=== PATIENT | female | born 2000 | race Caucasian/White ===

== ENCOUNTER 2021-08-25 10:50 | Outpatient (CLI) | payer BC, MEDICAID, SELFPAY ==
[2021-08-25] VITALS (26 sets, daily range): BP systolic 95–139; BP diastolic 51–72; PULSE 106–228; RESP 18–22; TEMP 37.2–37.3; O2SAT 93–100; BMI 34.2
[2021-08-25 12:02] LABS: Bilirubin Urine Neg (Negative); Blood Urine Neg (Negative); Glucose Urine UA Norm (Normal); Ketones Urine Negative (Negative); Leukocyte Esterase Urine 1+ (Negative); Nitrate Urine Negative (Negative); Protein Urine Neg (Negative); Specific Gravity, Urine 1.015 (1.005-1.030); Urine Appearance Clear (CLEAR); Urine Color Yellow (Yellow); Urobilinogen Urine Norm (Negative); pH Urine 6 (5-7)
[2021-08-25 12:09] LABS: Add Urine Culture? No; Bacteria Urine TRACE /hpf; Trichomonas Urine 1+ /hpf
[2021-08-25] MEDS: sodium chloride 0.9% 1,000 ML 999 ML IV (12:59)
[2021-08-25 13:15] LABS: Adenovirus Not Detected (NOT DETECT); Chlamydia Pneumoniae Not Detected (NOT DETECT); Coronavirus 229E,HKU1,NL63,OC4 Not Detected (NOT DETECT); Human Metapneumovirus Not Detected (NOT DETECT); Human Rhinovirus/Enterovirus Not Detected (NOT DETECT); Influenza A Not Detected (NOT DETECT); Influenza A H1 Not Detected (NOT DETECT); Influenza A H1-2009 Not Detected (NOT DETECT); Influenza A H3 Not Detected (NOT DETECT); Influenza B Not Detected (NOT DETECT); Mycoplasma Pneumoniae Not Detected (NOT DETECT); Parainfluenza Virus Type 1 Not Detected (NOT DETECT); Parainfluenza Virus Type 2 Not Detected (NOT DETECT); Parainfluenza Virus Type 3 Not Detected (NOT DETECT); Parainfluenza Virus Type 4 Not Detected (NOT DETECT); Respiratory Syncytial Virus A Not Detected (NOT DETECT); Respiratory Syncytial Virus B Not Detected (NOT DETECT); SARS-COV-2 Detected (NOT DETECT)
[2021-08-25 13:26] LABS: Influenza A by IFA Negative (Negative); Influenza B by IFA Negative (Negative)
[2021-08-25] MEDS: metroNIDAZOLE 500 MG Tablet PO (14:33)
== END 2021-08-25 14:40 | disposition home or self-care (01) ==
LOC: OPOB 10:57 → OBGYN 10:58
PROVIDERS: Visit Provider Family Medicine
DX: O26.899 Other specified pregnancy related conditions, unspecified trimester (principal); Z3A.00 Weeks of gestation of pregnancy not specified; M54.9 Dorsalgia, unspecified; R50.9 Fever, unspecified
CPT/HCPCS: 59025; 81001; 87635; 87804; 99211; J7030

== ENCOUNTER 2021-08-26 13:26 | Outpatient (CLI) | payer SELFPAY ==
[2021-08-26 13:12] VITALS: BP 118/83; PULSE 104; RESP 18; TEMP 36.8; O2SAT 97; BMI 34.0
[2021-08-26 15:14] VITALS: BP 112/69; PULSE 84; RESP 22; TEMP 36.6; O2SAT 97
== END 2021-08-26 13:27 | disposition home or self-care (01) ==
LOC: OPS 13:29
PROVIDERS: PCP Family Medicine; Visit Provider Family Medicine
DX: O98.519 Other viral diseases complicating pregnancy, unspecified trimester (principal); Z3A.00 Weeks of gestation of pregnancy not specified; U07.1 COVID-19
CPT/HCPCS: 96365